=== PATIENT | female | born 1970 | race Caucasian/White ===

== ENCOUNTER 2018-02-22 09:38 | Outpatient (CLI) | payer OTHER ==
[2018-02-22] MEDS ORDERED: IOHEXOL 50 ML IV ONE (10:36)
[2018-02-22] MEDS ORDERED: GADOPENTETATE DIMEGLUMINE 15 ML VIAL IV ONE (10:36)
== END 2018-02-22 18:40 | disposition home or self-care (01) ==
LOC: SRD 09:38
PROVIDERS: ATTEND Specialist
DX: N97.9 Female infertility, unspecified (principal); N92.6 Irregular menstruation, unspecified
CPT/HCPCS: 58340; 74740; Q9967; A9579